=== PATIENT | male | born 1945 | race Caucasian/White ===

== ENCOUNTER → 2017-01-16 | Day surgery (SDC) | payer MEDICARE ==
[~2017-01-16] MED LIST: AMLODIPINE BES2.5 MG PO; AMLODIPINE BESY10 MG PO; ASPIRIN; ASPIRIN EC81 M1 PO; ASPIRIN81 M2 PO; BAYER ASPIRIN325 M1 PO; BRILINTA90 MG PO; CARVEDILOL6.25 MG PO; COREG6.25 MG PO; GLIPIZIDE10 MG PO; GLUCOTROL PO; KCL PO; KEFLEX500 MG PO; KLOR-CON PO; LASIX20 MG PO; LIPITOR40 MG PO; MELOXICAM15 MG PO; METFORMIN HCL500 M1 PO; NORVASC10 MG PO; PRAVASTATIN SOD20 MG PO
--- NOTE | ~2017-01-16 | OR ---
Unit #: [id number] #: [id number] Patient: TEE PALOMO JR [id number] [address] [place], [place] [address] [id number] O MR#: [id number] NAME: TEE PALOMO JR ROOM: Date of Procedure: 01/16/2017 Admission Date: 01/16/2017 Surgeon: Frank Doran M.D. : 1945 Attending Physician: Braxton Doran Primary Care Physician: Tracy Caldwell M.D. SURGERY CENTER OPERATIVE NOTE PROCEDURE PERFORMED Cervical epidural steroid injection under x-ray guided needle placement. PREOPERATIVE DIAGNOSES 1. Acute cervical radiculitis. 2. Spinal stenosis, cervical spine. 3. Herniated disk, cervical spine multiple levels. 4. Degenerative joint disease, cervical spine. 5. Degenerative disk disease, cervical spine. 6. Cervical facet arthrosis. 7. Acute cervical facet arthralgia. INDICATIONS FOR PROCEDURE The patient presents today with a 1-year history of crescendo pattern pain, which is radicular and facet arthralgia in nature. The pain has failed to respond to ongoing and continuous conservative measures including medications and physical therapy. He is in possession of an MRI report, which shows diffuse levels of degenerative disk and herniated disk disease as well as multiple levels of facet arthrosis. After discussing risks and benefits of proceeding today with cervical approach epidural steroid injection as well as return on 02/06/2017 for potential second injection. The patient agreed this would be the appropriate course of action. He was also referred to [facility] for potential cervical facet injections. DESCRIPTION OF PROCEDURE Following these discussions, the patient was taken to the operating room, where he was prepped and draped in a sterile manner. Standard monitors were applied. He refused all forms of sedation and cervical space was accessed at the C5-C6 level using loss of resistance technique and x-ray guidance. Needle placement was confirmed with injection of 2 mL of Omnipaque. There was good superior and inferior flow at the C5-C6 level needle placement. Following successful needle placement confirmation, which required an x-ray time of 3 seconds, the patient received an injectate containing 2 mL of 0.25% bupivacaine, and 80 mg of methylprednisolone. He tolerated this procedure well. He was discharged home with followup instructions, which are described above. Dictated by... Frank Doran M.D. JRG/modwendi Unit #: [id number] #: [id number] Patient: TEE PALOMO JR Alice TD: 01/17/2017 01:14 JOB #: [id number] CC: Felipe Wakefield M.D. SURGERY CENTER OPERATIVE NOTE Page 1 of 1 X Braxton Doran MD X PROCEDURE OPERATIVE NOTE
== END | disposition home or self-care (01) ==
LOC: CCSC 08:09
DX: M50.122 Cervical disc disorder at C5-C6 level with radiculopathy (principal); M47.22 Other spondylosis with radiculopathy, cervical region; M48.02 Spinal stenosis, cervical region; I10 Essential (primary) hypertension; E11.9 Type 2 diabetes mellitus without complications; G47.39 Other sleep apnea; Z86.010 Personal history of colon polyps; Z79.82 Long term (current) use of aspirin; Z79.02 Long term (current) use of antithrombotics/antiplatelets; Z79.899 Other long term (current) drug therapy; Z79.84 Long term (current) use of oral hypoglycemic drugs; Z98.890 Other specified postprocedural states; Z95.5 Presence of coronary angioplasty implant and graft
CPT/HCPCS: J1040; J2250

== ENCOUNTER → 2017-02-06 | Day surgery (SDC) | payer MEDICARE ==
--- NOTE | ~2017-02-06 | OR ---
Unit #: [id number] #: [id number] Patient: TEE PALOMO JR [id number] [place] [id number] O MR#: [id number] NAME: TEE PALOMO JR ROOM: Date of Procedure: 02/06/2017 Admission Date: 02/06/2017 Surgeon: Frank Doran M.D. : 1945 Attending Physician: Frank Doran M.D. Primary Care Physician: Tracy Caldwell M.D. SURGERY CENTER OPERATIVE NOTE PROCEDURE PERFORMED Cervical epidural steroid injection under x-ray guided needle placement. PREOPERATIVE DIAGNOSES 1. Acute cervical radiculitis. 2. Cervical stenosis. 3. Degenerative joint disease, cervical spine. 4. Degenerative disk disease, cervical spine. 5. Facet arthralgia, cervical spine. INDICATIONS FOR PROCEDURE The patient presents today status post one previous cervical approach epidural steroid injection. The patient states he got almost complete relief of his radicular signs; however, this did not, nor do we expect it to have any effect on his facet arthralgia pain. He is pending consultation with [facility] for a potential facet joint injections for his cervical facet arthralgia. He got almost complete relief; however, over the course of the time between his initial visit and today's return, he had return of symptoms to the point that he is uncomfortable and desires a second epidural steroid injection. After discussing risks and benefits of proceeding today with cervical approach epidural steroid injection, the patient agreed this would be the appropriate course of action. DESCRIPTION OF PROCEDURE He was then taken to the operating room, where he was prepped and draped in a sterile manner. Standard monitors were applied. He refused all forms of sedation. The cervical epidural space was accessed at the C6-C7 level using loss of resistance technique and x-ray guidance. Needle placement was confirmed with injection of 2 mL of Omnipaque. Approximately 40% of dye flow was in the superior direction, which we felt was acceptable. Following successful needle placement confirmation at the C6-C7 level, the patient received an injectate containing 4 mL normal saline and 80 mg of methylprednisolone. He tolerated this procedure well. He was discharged home with followup instructions, which include return to this clinic on 05/17/2017. He was encouraged to discuss his treatment results with his referring and his primary care provider in the interim. Dictated by... Katarzyna Cabrales/jo Unit #: [id number] #: [id number] Patient: TEE PALOMO JR TD: 02/06/2017 22:36 JOB #: [id number] CC: Felipe Wakefield M.D. SURGERY CENTER OPERATIVE NOTE Page 1 of 1 X Braxton Doran MD X PROCEDURE OPERATIVE NOTE
== END | disposition home or self-care (01) ==
LOC: CCSC 12:04
DX: M50.10 Cervical disc disorder with radiculopathy, unspecified cervical region (principal); M48.02 Spinal stenosis, cervical region; M47.22 Other spondylosis with radiculopathy, cervical region; M19.90 Unspecified osteoarthritis, unspecified site; E11.9 Type 2 diabetes mellitus without complications; I10 Essential (primary) hypertension; Z87.01 Personal history of pneumonia (recurrent); Z86.010 Personal history of colon polyps; Z79.84 Long term (current) use of oral hypoglycemic drugs; Z79.82 Long term (current) use of aspirin; Z79.899 Other long term (current) drug therapy; Z95.5 Presence of coronary angioplasty implant and graft; Z98.890 Other specified postprocedural states
CPT/HCPCS: J1040; J2250

== ENCOUNTER 2017-02-27 18:25 | Inpatient (IN) | payer MEDICARE ==
--- NOTE | ~2017-02-27 | EKG ---
PATIENT: TEE PALOMO UNIT #: [id number] Ventricular Rate: 79 BPM Atrial Rate: 79 BPM P-R Interval: 228 ms QRS Duration: 92 ms Q-T Interval: 430 ms QTC Calculation(Bezet): 493 ms P [place]: 30 degrees Calculated R [place]: 16 degrees Calculated T [place]: 109 degrees Diagnosis Line: Sinus rhythm with 1st degree A-V block Diagnosis Line: T wave abnormality, consider anterolateral Diagnosis Line: ischemia Diagnosis Line: Abnormal ECG Diagnosis Line: When compared with ECG of 27-FEB-2017 19:24, Diagnosis Line: ST no longer elevated in Anterior leads Diagnosis Line: T wave inversion now evident in Anterolateral Diagnosis Line: leads Diagnosis Line: Confirmed by SONJA COLORADO MD ([id number]) on Diagnosis Line: 03/01/2017 10:49:31 AM INTERPRETING MD: NORBERTO
--- NOTE | ~2017-02-27 | CR72 ---
[facility] A Service of [facility] RADIOLOGY TEXT RESULTS PATIENT: TEE PALOMO JR LOCATION: [address] : [birth year] UNIT #: [id number] AGE: [address]: Craig Clarke MD SEX: M ORDER DR: [id number] [facility] [address] [facility]. [place], [place] [address] [id number] I MR#: [id number] Acc #: [id number] NAME: TEE PALOMO JR : 1945 SEX: M STUDY DATE/TIME: 02/27/2017 19:21 UNIT: [facility] ROOM: [facility] STUDY DESCRIPTION: CR Chest Single View Portable Attending Physician: Craig Clarke M.D. Ordering Physician: Satish Perez M.D. Primary Care Physician: Tracy Caldwell M.D. MEDICAL IMAGING REPORT This report is preliminary unless electronic signature is present EXAM Single view chest. INDICATIONS Chest pain and vomiting for 1 day. FINDINGS Single portable AP view of the chest compared to 03/01/2014. The heart and mediastinal contours are normal. The lungs are clear. No pneumothorax. IMPRESSION No acute cardiopulmonary findings. Dictated by... Claude Duff M.D. THIS IS AN ELECTRONICALLY VERIFIED REPORT Claude Duff M.D. at 02/28/2017 10:51 AM MARICHUY/sancho TD: 02/28/2017 09:29 JOB #: [id number] MEDICAL IMAGING REPORT Page 1 of 1 COPY
--- NOTE | ~2017-02-27 | DS ---
Unit #: [id number] #: [id number] Patient: TEE PALOMO JR [id number] [id number] [facility]. [place], [place] [address] [id number] I MR#: [id number] NAME: TEE PALOMO JR ROOM: [facility] Age: 71 Sex: M Admission Date: 02/27/2017 : 1945 Discharge Date: 03/01/2017 Attending Physician: Craig Clarke M.D. Primary Care Physician: Tracy Caldwell M.D. DISCHARGE SUMMARY TRANSFER SUMMARY TRANSFER DIAGNOSES 1. Acute anterolateral wall non-ST elevation myocardial infarction. 2. Status post cardiac catheterization 02/28/[address] Clarke at [facility] that reveals the following results: a) Left main normal. b) Left anterior descending artery with 99% stenosis caused by intimal plaque rupture with mild thrombus burden and a very proximal left anterior descending about 5 mm distal to its origin with the stenosis extending into the first septal dress cap maker. Stent distal to the first septal dress cap maker widely patent. First diagonal branch is normal. c) Circumflex artery large caliber, co-dominant vessel, with 50% to 60% stenosis after the origin of the second marginal branch. d) Right coronary artery large caliber dominant vessel with 50% to 60% stenosis in the mid segment of the posterior left ventricular branch. Right coronary artery and PDA normal. e) Ejection fraction of 45% with moderate hypokinesis of the anterolateral and apical wall. 3. Previous percutaneous coronary intervention with drug-eluting stent to the mid left anterior descending 10/2015. 4. Hypertension. 5. Hyperlipidemia. 6. Diabetes mellitus type 2. 7. Nonsmoker. TRANSFER MEDICATIONS 1. Zofran 4 mg IV q.4 hours p.r.n. 2. Lovenox 100 mg b.i.d. 3. Carvedilol 6.25 mg b.i.d. 4. Lisinopril 2.5 mg q. h.s. 5. NovoLog per medium dose sliding scale a.c. and h.s. 6. Aspirin 81 mg daily. 7. Oxycodone/acetaminophen 5/325, one to two tablets q.4 hours p.r.n. 8. Glipizide 10 mg q. a.m. 9. Nitroglycerin 1 g topically b.i.d. 10. Nitroglycerin 0.4 mg sublingual q.5 minutes x3 p.r.n. chest pain. 11. Integrilin drip at 2 mcg/kg/minute. HOSPITAL COURSE This is a 71-year-old white male who is known to have a previous stent to the LAD in 10/2015, who presented to the emergency room with a complaint of chest pain. He reported retrosternal aching discomfort lasting about 30 Unit #: [id number] #: [id number] Patient: TEE PALOMO JR to 40 minutes with no radiation to his neck, arm or jaw. He had left upper extremity pain. For this reason, he came to the emergency room for evaluation where he was treated with Zofran, intravenous nitroglycerin and morphine. His pain subsided. His electrocardiogram showed rhythm changes consistent with anterolateral wall ischemia. There was nonspecific ST elevation in leads I and AVL. His initial troponin was normal, however, it michelle to 3.21 eventually peaking at 35.19. Troponin yesterday trended downward at 24.12. He was continued on nitroglycerin drip, given Lovenox and started on Integrilin bolus followed by a continuous effusion. He takes a daily dose of aspirin which was continued. Lipitor was increased to 80 mg. Cardiac catheterization was recommended for which the patient agreed. The following day, he went to the cardiac catheterization lab where he was found to have 99% stenosis to the very early proximal LAD. The previously placed stent to the mid LAD was widely patent. The mid circumflex artery had 60% stenosis. PLV of the right coronary artery had nonobstructive disease of 50% to 60%. It was felt the patient should consider single vessel coronary artery bypass graft with possible bypass graft to the third branch of the circumflex artery. He was continued on intravenous Integrilin, aspirin, and started on an ALONZO inhibitor. He needs to continue risk factor modification. During the course of his stay, he had no recurrence of chest pain. His electrocardiogram showed persistent anterolateral wall ischemic changes. No ST elevation was noted. His heart rate remained stable. His blood pressure marginal. Lisinopril has been decreased to 2.5 mg q. h.s. The patient is agreeable to transfer to [facility] and will await a bed availability. ASSESSMENT VITAL SIGNS: Blood pressure 97/55, heart rate 72, temperature 98.5. CHEST: Clear to auscultation. HEART: S1, S2. Regular rate and rhythm. No murmurs or rubs or clicks. ABDOMEN: Soft, nontender with bowel sounds present. EXTREMITIES: Without leg edema. Pedal pulses are palpable. Right groin site without hematoma or bruising. DIAGNOSTIC STUDIES LABORATORY: Glucose 257, BUN 10, creatinine 0.7, sodium 135, potassium 3.4, white count 7.5, hemoglobin 14.6, hematocrit 41.9, platelet count 131. CARDIOVASCULAR: Electrocardiogram shows normal sinus rhythm with first degree AV block with a rate of 76 beats/minute with anterolateral deep T wave inversions. DISPOSITION [facility]. PLAN 1. The patient will transfer to [facility] when bed available. He will be evaluated by cardiothoracic surgery for possible single vessel coronary artery bypass graft to the LAD. 2. Continue medications as stated above. Dictated by... Moise Arevalo, A.P.R.N. for Katarzyna Sanchez/daniella Unit #: [id number] #: [id number] Patient: DEWEY GLOVERTEE Jenkins TD: 03/01/2017 12:28 JOB #: [id number] DISCHARGE SUMMARY Page 1 of 1 X Moise Arevalo APRN X DISCHARGE SUMMARY
--- NOTE | ~2017-02-27 | EKG ---
PATIENT: TEE PALOMO UNIT #: [id number] Ventricular Rate: 76 BPM Atrial Rate: 76 BPM P-R Interval: 236 ms QRS Duration: 98 ms Q-T Interval: 440 ms QTC Calculation(Bezet): 495 ms P [place]: 40 degrees Calculated R [place]: 35 degrees Calculated T [place]: 112 degrees Diagnosis Line: Sinus rhythm with 1st degree A-V block Diagnosis Line: T wave abnormality, consider anterolateral Diagnosis Line: ischemia Diagnosis Line: Abnormal ECG Diagnosis Line: When compared with ECG of 28-FEB-2017 06:28, Diagnosis Line: (unconfirmed) Diagnosis Line: No significant change was found Diagnosis Line: Confirmed by SONJA COLORADO MD ([id number]) on Diagnosis Line: 03/01/2017 10:52:29 AM INTERPRETING MD: NORBERTO
--- NOTE | ~2017-02-27 | EKG ---
PATIENT: TEE PALOMO UNIT #: [id number] Ventricular Rate: 95 BPM Atrial Rate: 95 BPM P-R Interval: 214 ms QRS Duration: 94 ms Q-T Interval: 378 ms QTC Calculation(Bezet): 475 ms P [place]: 57 degrees Calculated R [place]: -9 degrees Calculated T [place]: -4 degrees Diagnosis Line: Sinus rhythm with 1st degree A-V block Diagnosis Line: ST elevation consider lateral injury or acute Diagnosis Line: infarct Diagnosis Line: ACUTE CA / STEMI Diagnosis Line: inferior wall subendocardial injury Diagnosis Line: Abnormal ECG Diagnosis Line: When compared with ECG of 27-FEB-2017 18:30, Diagnosis Line: (unconfirmed) Diagnosis Line: ST elevation now present in lateral leads 1 and Diagnosis Line: avL Diagnosis Line: Confirmed by NANDA IZQUIERDO MD ([id number]) on 02/28/2017 Diagnosis Line: 5:52:03 AM INTERPRETING MD: FELECIA CALVIN
--- NOTE | ~2017-02-27 | HP ---
Unit #: [id number] #: [id number] Patient: TEE PALOMO JR [id number] [place] [id number] [facility]. [place], [place] [address] [id number] I MR#: [id number] NAME: TEE PALOMO JR ROOM: [facility] Age: 71 Sex: M Admission Date: 02/27/2017 : 1945 Attending Physician: Craig Clarke M.D. Primary Care Physician: Tracy Caldwell M.D. HISTORY AND PHYSICAL HISTORY OF PRESENT ILLNESS This 71-year-old, white male came to the emergency room complaining of midsternal and low retrosternal aching discomfort that started about 30-40 minutes prior to arrival in the emergency room. There was no radiation of this pain to the neck or the jaw, but he complained of aching discomfort in the left upper extremity, which was not similar to the pain he had had at the time of onset of angina pectoris in 2016. He did not try sublingual nitroglycerin because he did not have any. He denied any associated nausea, diaphoresis, dyspnea, palpitations, or dizziness. In the emergency room, he was given aspirin and given 4 mg of Zofran, which improved the chest discomfort partially. He was started on intravenous nitroglycerin and given morphine and Phenergan. The pain subsided and he had no recurrence of chest discomfort. Initial EKG showed normal sinus rhythm, ST segment depression in V3 and aVF, and nonspecific ST elevation in leads 1 and aVL. Patient has been able to do most of his activities without any limitations. He has not had any exertional dyspnea, exertional chest pain, and he denied any history of orthopnea or nocturnal dyspnea in the recent past. Patient is known to have diabetes mellitus and hypertension for which he is being treated and he has been on his medicines for control of lipid abnormalities. PAST MEDICAL HISTORY In October of 2015, patient was found to have normal left ventricular systolic function, left main coronary artery and right coronary artery were normal, left anterior descending artery showed a 99% stenosis distal to origin of the first septal industrial photographer and the first diagonal branch and the first diagonal branch showed a 50% stenosis at its origin. Nondominant circumflex coronary artery had shown about 60% stenosis distal to origin of the third marginal branch. Patient had undergone successful PCI with stent insertion on proximal LAD stenosis on October using a drug-eluting stent postdilated to 3.33 mm with a noncompliant balloon. Past medical history also includes: 1. Hyperlipidemia. 2. History of alcohol use, which he stopped almost a year ago. 3. Cervical spine stenosis for which he has received steroid injections under x-ray guided needle insertion. 4. Low back surgery. Unit #: [id number] #: [id number] Patient: TEE PALOMO JR 5. Hemorrhoidectomy. 6. Left knee joint repair in 2005. 7. Right knee joint MCL repair in 2007. PHYSICAL EXAMINATION GENERAL: Revealed a middle-aged male in no acute distress. NECK: At the time of examination, there was no jugular venous distention. Both carotids had a normal upstroke without any bruits. EXTREMITIES: There was no ankle edema. CARDIAC: Showed apical impulse to be normal. Both heart sounds are normal. No rubs or clicks are audible. There was no murmur. CHEST: Showed good air entry bilaterally without any rales or rhonchi. ABDOMEN: Examination showed no hepatosplenomegaly, free fluid, or masses. RECTAL: Examination was deferred. SHACTOR HELPER: Examination was within normal limits. DIAGNOSTIC STUDIES CARDIOVASCULAR: Electrocardiogram at the time of admission showed normal sinus rhythm, normal ST segment depression in leads III and aVF, and nondiagnostic ST elevation in leads I and aVL. Repeat electrocardiogram done 30 minutes later showed no significant change. LABORATORY: Initial troponin level was normal, repeat troponin at 9:00 p.m. DIAGNOSES 1. New onset angina pectoris. 2. Possible high lateral wall ST elevation ND. 3. Status post PCI with stent insertion, proximal left anterior descending artery, October 2015. 4. Non-insulin dependent diabetes mellitus. 5. Hypertension (1) control. 6. Hyperlipidemia. 7. Reformed alcohol use. 8. Cervical spine stenosis. PLAN Patient was started on intravenous Integrilin in the emergency room along with intravenous nitroglycerin. He was given 80 mg of Lipitor and Lovenox started as an anticoagulant. Cardiac catheterization would be performed and PCI considered if feasible. Dictated by Katarzyna Sanchez TD: 02/28/2017 07:43 JOB #: [id number] CC: Katarzyna Cross David Unit #: [id number] #: [id number] Patient: TEE PALOMO JR HISTORY AND PHYSICAL Page 1 of 1 X Craig Clarke MD HISTORY AND PHYSICAL
--- NOTE | ~2017-02-27 | EKG ---
PATIENT: TEE PALOMO UNIT #: [id number] Ventricular Rate: 95 BPM Atrial Rate: 95 BPM P-R Interval: 204 ms QRS Duration: 88 ms Q-T Interval: 376 ms QTC Calculation(Bezet): 472 ms P [place]: 49 degrees Calculated R [place]: -7 degrees Calculated T [place]: -10 degrees Diagnosis Line: Normal sinus rhythm Diagnosis Line: Nonspecific ST abnormality Diagnosis Line: Abnormal ECG Diagnosis Line: Nonspecific ST elevation lateral leads Diagnosis Line: When compared with ECG of 22-OCT-2015 05:36, Diagnosis Line: ST now depressed in Inferior leads Diagnosis Line: T wave inversion now evident in Inferior leads Diagnosis Line: Nonspecific T wave abnormality no longer evident Diagnosis Line: in Lateral leads Diagnosis Line: Confirmed by NANDA IZQUIERDO MD ([id number]) on 02/28/2017 Diagnosis Line: 5:48:49 AM INTERPRETING MD: FELECIA CALVIN
[~2017-02-27 18:25] MED LIST changes: -AMLODIPINE BES2.5 MG PO; -ASPIRIN81 M2 PO; -METFORMIN HCL500 M1 PO
[2017-02-27 19:31] LABS: BASOPHIL% 0.4 % (0-2.5); EOSINOPHIL# 0.1 X10e3 (0-0.7); EOSINOPHIL% 1.3 % (0.0-7.0); HEMATOCRIT 44.9 % (38.0-50.0); HEMOGLOBIN 15.4 gm/dL (13.0-16.0); LYMPHOCYTE# 1.6 X10e3 (1.0-3.5); LYMPHOCYTE% 17.8 % (17.0-45.0); MEAN CELL VOLUME 88.9 FL (83-96); MEAN CORPUSCULAR HEMOGLOBIN 30.5 PG (28-34); MEAN CORPUSCULAR HGB CONC 34.3 g/dL (30-36); MONOCYTE# 0.8 X10e3 (0-1.0); MONOCYTE% 8.6 % (3.0-12.0); NEUTROPHIL# 6.3 X10e3 (1.5-7.1); NEUTROPHIL% 71.9 % (40-75); PLATELET COUNT 189 X10e3 (140-420); RED BLOOD COUNT 5.06 X10e (3.90-5.60); RED CELL DISTRIBUTION WIDTH 12.8 % (11.0-15.5); WHITE BLOOD COUNT 8.8 X10e3 (4.0-10.5)
[2017-02-27 19:32] LABS: DIFF IND NO
[2017-02-27 19:42] LABS: PARTIAL THROMBOPLASTIN TIME 25.2 SECONDS (23.5-31.3); PROTHROMBIN TIME (PATIENT) 10.8 SECONDS (10.0-11.7)
[2017-02-27 19:42] LABS: POC - CKMB 6.9 ng/mL (0.0-7.9); POC - TROPONIN <0.05 ng/mL (<=0.05)
[2017-02-27 19:51] LABS: ALBUMIN SERUM 4.8 g/dL (3.5-5.0); BILIRUBIN, DIRECT 0.4 mg/dL (0.0-0.2); BILIRUBIN,INDIRECT 1.7 mg/dL (0.0-0.9); BILIRUBIN,TOTAL 2.1 mg/dL (0.2-2.0); CALCIUM SERUM 9.2 mg/dL (8.4-10.2); CREATININE SERUM 0.8 mg/dL (0.6-1.4); GLOM FILT RATE Estimated 91.2 mL/min (>60); POTASSIUM 4.1 mmol/L (3.5-5.1); PROTEIN TOTAL SERUM 7.7 g/dL (6.0-8.3)
[2017-02-27 21:01] LABS: POC - TROPONIN 3.21 ng/mL (<=0.05)
[2017-02-27] MEDS ORDERED: METFORMIN HCL500 M1 PO (21:53)
[2017-02-27] MEDS ORDERED: AMLODIPINE BES2.5 MG PO (22:11)
[2017-02-27] MEDS ORDERED: GLIPIZIDE10 MG PO (22:11)
[2017-02-27] MEDS ORDERED: CARVEDILOL6.25 MG PO (22:12)
[2017-02-27] MEDS ORDERED: LIPITOR40 MG PO (22:12)
[2017-02-27] MEDS ORDERED: ASPIRIN81 M2 PO (22:13)
[2017-02-28 04:20] LABS: BASOPHIL% 0.5 % (0-2.5); EOSINOPHIL# 0.1 X10e3 (0-0.7); EOSINOPHIL% 1.2 % (0.0-7.0); HEMATOCRIT 41.9 % (38.0-50.0); HEMOGLOBIN 14.6 gm/dL (13.0-16.0); LYMPHOCYTE# 1.7 X10e3 (1.0-3.5); LYMPHOCYTE% 22.7 % (17.0-45.0); MEAN CELL VOLUME 89.3 FL (83-96); MEAN CORPUSCULAR HEMOGLOBIN 31.1 PG (28-34); MEAN CORPUSCULAR HGB CONC 34.9 g/dL (30-36); MEAN PLATELET VOLUME 8.3 FL (6.5-11.5); MONOCYTE# 0.8 X10e3 (0-1.0); MONOCYTE% 10.6 % (3.0-12.0); NEUTROPHIL# 4.9 X10e3 (1.5-7.1); PLATELET COUNT 181 X10e3 (140-420); RED BLOOD COUNT 4.69 X10e (3.90-5.60); WHITE BLOOD COUNT 7.5 X10e3 (4.0-10.5)
[2017-02-28 04:21] LABS: DIFF IND NO
[2017-02-28 04:35] LABS: PARTIAL THROMBOPLASTIN TIME 28.6 SECONDS (23.5-31.3); PROTHROMBIN TIME (PATIENT) 10.5 SECONDS (10.0-11.7)
[2017-02-28 04:45] LABS: BUN/CREATININE RATIO 14.28; CALCIUM SERUM 8.8 mg/dL (8.4-10.2); CREATININE SERUM 0.7 mg/dL (0.6-1.4); GLOM FILT RATE Estimated 96.3 mL/min (>60); POTASSIUM 3.4 mmol/L (3.5-5.1)
[2017-02-28 05:12] LABS: %MB 10.9 % (0.0-4.0); MB 279.5 ng/ml
[2017-02-28 10:52] LABS: %MB 10.5 % (0.0-4.0)
[2017-03-01 05:41] LABS: CREATININE SERUM 0.7 mg/dL (0.6-1.4); GLOM FILT RATE Estimated 96.3 mL/min (>60)
== END 2017-03-01 13:46 | DRG 282 ==
LOC: CED 18:25 → CICCU3 20:27 → CEDOF 20:27 → CED 20:27 → CICCU3 21:39 → CEDOF 21:39 → CICCU3 02-28 20:56
PROVIDERS: Emergency Medicine; Internal Medicine Cardiovascular Disease
PROC: 4A023N7 Measurement of Cardiac Sampling and Pressure, Left Heart, Percutaneous Approach (ICD-10-PCS; principal; 2017-02-28)
PROC: B213YZZ Fluoroscopy of Multiple Coronary Artery Bypass Grafts using Other Contrast (ICD-10-PCS; 2017-02-28)
PROC: B211YZZ Fluoroscopy of Multiple Coronary Arteries using Other Contrast (ICD-10-PCS; 2017-02-28)
PROC: B215YZZ Fluoroscopy of Left Heart using Other Contrast (ICD-10-PCS; 2017-02-28)
DX: I21.4 Non-ST elevation (NSTEMI) myocardial infarction (principal); E11.8 Type 2 diabetes mellitus with unspecified complications; I10 Essential (primary) hypertension; E78.5 Hyperlipidemia, unspecified; Z79.4 Long term (current) use of insulin; Z79.82 Long term (current) use of aspirin; I25.119 Atherosclerotic heart disease of native coronary artery with unspecified angina pectoris; Z79.84 Long term (current) use of oral hypoglycemic drugs; M48.02 Spinal stenosis, cervical region; Z95.5 Presence of coronary angioplasty implant and graft
CPT/HCPCS: 36415; 71010; 80048; 80076; 82550; 82553; 82565; 82947; 84484; 85025; 85610; 85730; 93005; 96372; 96374; 96375; 96376; 99291; C1769; C1887; C1894; J1327; J1644; J1650; J1815; J2250; J2405; J3010